=== PATIENT | female | born 1965 | race Two or more races ===

== ENCOUNTER 2021-08-09 22:57 | Emergency (ER) | payer OTHER ==
[~2021-08-09] VITALS: Ht 165.1 cm; Wt 98.0 kg
[2021-08-09] MEDS ORDERED: LISI10TA24 PO (23:05)
[2021-08-09] MEDS ORDERED: FAMO20TA8 PO (23:05)
[2021-08-09] MEDS ORDERED: GABA600T10 PO (23:05)
[2021-08-09] MEDS ORDERED: PRAV20TA4 PO (23:05)
[2021-08-09] MEDS ORDERED: LORazepam 1 MG TABLET PO ONE (23:15)
[2021-08-09 23:22] LABS: BASOPHILS % (AUTO) 0.3 % (0.0-2.0); EOSINOPHILS % (AUTO) 2.6 % (1.0-6.0); HEMATOCRIT 38.9 % (36-46); LYMPHOCYTES # (AUTO) 2.3 K/uL (1.0-4.8); LYMPHOCYTES % (AUTO) 34.4 % (22.0-44.0); MEAN CORPUSCULAR HEMOGLOBIN 28.7 pg (26.0-34.0); MEAN CORPUSCULAR HGB CONC 33.5 G/dL (31.0-37.0); MEAN CORPUSCULAR VOLUME 86 fL (80-100); MONOCYTES # (AUTO) 0.4 K/uL (0.1-1.0); MONOCYTES % (AUTO) 5.7 % (2.0-9.0); NEUTROPHILS # (AUTO) 3.7 K/uL (1.8-7.7); PLATELET COUNT (AUTO) 316 K/uL (150-450); RED BLOOD CELL COUNT(AUTO) 4.53 MIL/uL (4.00-5.20); RED CELL DISTRIBUTION WIDTH 15.1 % (11.5-14.5)
[2021-08-09 23:34] LABS: CREATININE 1.03 mg/dL (0.60-1.30); MAGNESIUM 2.2 mg/dL (1.80-2.40); POTASSIUM 3.7 mmol/L (3.5-5.1)
[2021-08-10 00:36] VITALS: BP 139/82
[2021-08-10] MEDS ORDERED: CYCL10TA17 PO (00:58)
== END 2021-08-10 00:57 | disposition home or self-care (01) ==
LOC: EMS 23:01
DX: F41.9 Anxiety disorder, unspecified (principal); M62.838 Other muscle spasm; I10 Essential (primary) hypertension; F12.90 Cannabis use, unspecified, uncomplicated; Z79.899 Other long term (current) drug therapy
CPT/HCPCS: 80048; 83735; 85025; 99283